=== PATIENT | female | born 1975 | race Caucasian/White ===

== ENCOUNTER → 2024-02-28 10:11 | Outpatient (REF) | payer OTHER, SELFPAY ==
[2024-02-28 12:30] LABS: Rubella Positive
[2024-02-28 12:49] LABS: Hepatitis B Surface Antibody Positive
[2024-03-01 15:52] LABS: Mumps Virus IgG Equivocal; Rubeola (Measles) IgG Positive; Varicella Zoster IgG (VZV) Positive
[2024-03-02 00:24] LABS: Quantiferon Mitogen minus NIL 9.03 IU/mL; Quantiferon NIL 0.06 IU/mL; Quantiferon TB Gold Plus Negative (Negative)
== END ==
LOC: OHS 10:11
PROVIDERS: ATTENDING PHYSICIAN Nurse Practitioner Family
DX: Z23 Encounter for immunization (principal)
CPT/HCPCS: 36415; 86480; 86706; 86735; 86762; 86765; 86787